=== PATIENT | female | born 1985 | race Caucasian/White ===

== ENCOUNTER 2017-07-25 20:26 | Emergency (ER) | payer SELFPAY ==
[~2017-07-25] VITALS: Ht 160 cm; Wt 60.8 kg
[2017-07-25 20:47] VITALS: Ht 160 cm; Wt 60.8 kg
[2017-07-25 22:10] VITALS: BP 94/56
== END 2017-07-25 22:10 | disposition home or self-care (01) ==
LOC: ED 20:26
DX: M54.5 Low back pain (principal)

== ENCOUNTER 2018-07-29 19:29 | Emergency (ER) | payer OTHER ==
[~2018-07-29] VITALS: Ht 160 cm; Wt 52.2 kg
[2018-07-29 19:53] VITALS: Ht 160 cm; Wt 52.2 kg
[2018-07-29 23:27] VITALS: BP 119/79
== END 2018-07-29 23:27 | disposition home or self-care (01) ==
LOC: ED 19:29
DX: B34.9 Viral infection, unspecified (principal); J40 Bronchitis, not specified as acute or chronic

== ENCOUNTER 2018-10-20 12:33 | Emergency (ER) | payer OTHER ==
[~2018-10-20] VITALS: Ht 160 cm; Wt 52.2 kg
[2018-10-20 12:48] VITALS: BP 138/97
== END 2018-10-20 14:20 | disposition home or self-care (01) ==
LOC: ED 12:33
DX: Z02.79 Encounter for issue of other medical certificate (principal); Z13.89 Encounter for screening for other disorder; F17.210 Nicotine dependence, cigarettes, uncomplicated

== ENCOUNTER 2018-12-31 17:00 | Emergency (ER) | payer OTHER ==
[~2018-12-31] VITALS: Ht 160 cm; Wt 52.6 kg
[2018-12-31 17:07] VITALS: Ht 160 cm; Wt 52.6 kg
[2018-12-31 17:57] LABS: BASOPHIL % 1.2 % (0-2); PLATELET COUNT 399 x10^3mcL (130-400); RED CELL DISTRIBUTION WIDTH 13.1 % (11.5-14.5)
[2018-12-31 18:10] LABS: CALCIUM 8.6 mg/dL (8.5-10.1); CARBON DIOXIDE 29.3 mmol/L (21-32); CHLORIDE SERUM 103 mmol/L (98-107); CREATININE SERUM 0.9 mg/dL (0.6-1.0); GFR1 > 60 mL/min; GLUCOSE SERUM 93 mg/dL (74-106); POTASSIUM SERUM 3.9 mmol/L (3.5-5.1); SODIUM SERUM 140 mmol/L (136-145)
[2018-12-31 18:15] LABS: ALBUMIN 3.7 g/dL (3.4-5.0); ALKALINE PHOSPHATASE 61 U/L (46-116); ALT/SGPT 57 U/L (14-59); AST/SGOT 37 U/L (15-37); BILIRUBIN TOTAL 0.6 mg/dL (0.20-1.00); TOTAL PROTEIN, SERUM 7.1 g/dL (6.4-8.2)
[2018-12-31 19:23] VITALS: BP 122/77
[2018-12-31 20:13] LABS: microscopic required? YES; urine erythrocyte 1+ (NEGATIVE)
== END 2018-12-31 19:23 | disposition home or self-care (01) ==
LOC: ED 17:00
PROVIDERS: Emergency Medicine
DX: R10.31 Right lower quadrant pain (principal); F17.200 Nicotine dependence, unspecified, uncomplicated
CPT/HCPCS: 36415; 87491; 87591

== ENCOUNTER 2019-01-02 12:31 | Emergency (ER) | payer OTHER ==
[~2019-01-02] VITALS: Ht 160 cm; Wt 52.6 kg
[2019-01-02 12:58] VITALS: BP 113/76; Ht 160 cm; Wt 52.6 kg
== END 2019-01-02 15:01 | disposition home or self-care (01) ==
LOC: ED 12:31
DX: N39.0 Urinary tract infection, site not specified (principal)
CPT/HCPCS: J0696

== ENCOUNTER 2019-06-16 11:34 | Emergency (ER) | payer OTHER ==
[~2019-06-16] VITALS: Ht 160 cm; Wt 65.8 kg
[2019-06-16 11:43] VITALS: Ht 160 cm; Wt 65.8 kg
[2019-06-16 12:05] VITALS: BP 119/68
== END 2019-06-16 12:05 | disposition home or self-care (01) ==
LOC: ED 11:34
DX: I88.9 Nonspecific lymphadenitis, unspecified (principal); F12.20 Cannabis dependence, uncomplicated; F17.200 Nicotine dependence, unspecified, uncomplicated
CPT/HCPCS: 99406